=== PATIENT | female | born 1965 ===

== ENCOUNTER 2022-09-15 17:00 | Outpatient (RCR) | payer OTHER, SELFPAY | END 2022-09-15 18:06 | disposition home or self-care (01) | LOC: HO.PTCHIC 17:00 | PROVIDERS: Absent Provider Physician Assistant; PCP Family Medicine; Visit Provider Family Medicine | DX: M54.2 Cervicalgia (principal) | CPT/HCPCS: 97110; 97112; 97140; 97162 ==